=== PATIENT | female | born 1985 | race Two or more races ===

== ENCOUNTER 2018-03-27 09:11 | Emergency (ER) | payer SELFPAY ==
[~2018-03-27] VITALS: Ht 154.9 cm; Wt 63.5 kg
[2018-03-27 09:30] VITALS: BP 130/89
[2018-03-27] MEDS ORDERED: ORPHENADRINE CITRATE 60 MG/2 ML VIAL. IM ONE (10:45)
[2018-03-27] MEDS ORDERED: KETOROLAC 30 MG/ML VIAL. IM ONE (10:45)
[2018-03-27] MEDS ORDERED: ORPH100T PO (11:10)
[2018-03-27] MEDS ORDERED: NAPR500T8 PO (11:10)
--- NOTE | 2018-03-27 11:10 | PHYS DOC ---
Past Medical History Past Medical History: No Pertinent History Past Surgical History: No Surgical History Alcohol Use: None Drug Use: None Adult General Chief Complaint Chief Complaint: COUGH HPI HPI Patient is a 32 year old female who presents with left neck and shoulder pain for the last 2 days that began when she awoke. She denies any known injury. Reports the pain shoots up to her left ear and down to her left shoulder. The pain increases with coughing and movement. Review of Systems Review of Systems Constitutional: Denies fever or chills [] Eyes: Denies change in visual acuity, redness, or eye pain [] HENT: Denies nasal congestion or sore throat [] Respiratory: Denies shortness of breath; reports dry cough Cardiovascular: No additional information not addressed in HPI [] Musculoskeletal: Denies back pain, reports L neck pain Integument: Denies rash or skin lesions [] Neurologic: Denies headache, focal weakness or sensory changes [] All other systems were reviewed and found to be within normal limits, except as documented in this note. Current Medications Current Medications Current Medications Medications (Trade) Dose Ordered Sig/Karma Start Time Stop Time Status Last Admin Dose Admin Insulin Human Regular (HumuLIN R VIAL) 5 unit 1X ONCE 03/27/18 11:45 03/27/18 11:46 Cancel Ketorolac Tromethamine (Toradol 30mg Vial) 30 mg 1X ONCE 03/27/18 10:45 03/27/18 10:46 DC 03/27/18 10:31 30 MG Magnesium Sulfate/ Dextrose 100 ml @ 100 mls/hr 1X ONCE 03/27/18 11:45 03/27/18 12:44 Cancel Orphenadrine Citrate (Norflex) 60 mg 1X ONCE 03/27/18 10:45 03/27/18 10:46 DC 03/27/18 10:32 60 MG Potassium Chloride (Klor-Con) 60 meq 1X ONCE 03/27/18 11:45 03/27/18 11:46 Cancel Allergies Allergies Allergies Coded Allergies Type Severity Reaction Last Updated Verified No Known Drug Allergies 03/27/18 No Physical Exam Physical Exam Constitutional: Well developed, well nourished, no acute distress, non-toxic appearance. [] HENT: Normocephalic, atraumatic, bilateral external ears normal, oropharynx moist, no oral exudates, nose normal. [] Eyes: PERRLA, conjunctiva normal, no discharge. [] Neck: supple, no stridor, no bony tenderness; L sternocleidomastoid tenderness to palpation, limited lateral ROM due to increased pain, chin to chest normal Cardiovascular:Heart rate regular rhythm, no murmur [] Lungs & Thorax: Bilateral breath sounds clear to auscultation [] Skin: Warm, dry, no erythema, no rash. [] Extremities: No cyanosis, no clubbing, ROM intact, no edema. [] Neurologic: Alert and oriented X 3, normal motor function, normal sensory function, no focal deficits noted. [] Psychologic: Affect normal, judgement normal, mood normal. [] Current Patient Data Vital Signs Vital Signs Date Time Temp Pulse Resp B/P (MAP) Pulse Ox O2 Delivery O2 Flow Rate FiO2 03/27/18 09:30 98.0 89 20 130/89 (103) 99 Room Air 98.0 Lab Values Laboratory Tests Test 03/27/18 10:47 POC Urine HCG, Qualitative Hcg negative (Negative) EKG EKG [] Radiology/Procedures Radiology/Procedures [] Course & Med Decision Making Course & Med Decision Making Pertinent Labs and Imaging studies reviewed. (See chart for details) Dx: acute torticollis Pt was given 60 mg IM norflex, and 30 mg IM toradol, reports relief of pain after medications. Prescriptions written for naproxen and orphenadrine, activity as tolerated. Patient verbalized an understanding of home care, medications, follow-up, and return to ED instructions and was in agreement with the plan of care. [] Staff Physician Addendum: I was working in the ER during the course of this patient's visit. I was available for consultation as needed, but I was not directly involved in the care of this patient. Dragon Disclaimer Dragon Disclaimer This electronic medical record was generated, in whole or in part, using a voice recognition dictation system. Departure Departure Impression: Primary Impression: Torticollis, acute Disposition: HOME, SELF-CARE Condition: IMPROVED Referrals: NO PCP (PCP) Patient Instructions: Torticollis, Acute Additional Instructions: Fill the prescriptions and use them as directed. SHe may apply ice or heat to sore areas for comfort. Follow-up with your primary care doctor in 2-3 days if your symptoms persist. Return to the emergency room if her symptoms worsen. Scripts Orphenadrine Citrate (ORPHENADRINE CITRATE) 100 Mg Tablet.er 1 TAB PO BID for 10 Days, #20 TAB 0 Refills Prov: RIDDHI MCHUGH APRN 03/27/18 Naproxen (NAPROXEN) 500 Mg Tablet.dr 1 TAB PO BID for 10 Days, #20 TAB 0 Refills Prov: RIDDHI MCHUGH APRN 03/27/18 RIDDHI MCHUGH APRN Mar 27, 2018 11:10 BERT MONTEZ MD Mar 31, 2018 07:20
[2018-03-27] MEDS ORDERED: INSULIN REGULAR 100 UNIT/ML 3ML VIAL. IV ONE (11:45)
[2018-03-27] MEDS ORDERED: POTASSIUM CHLORIDE 20 MEQ TABLET.ER. PO ONE (11:45)
[2018-03-27] MEDS ORDERED: MAGNESIUM SULFATE 1GM 100 ML IV ONE (11:45)
== END 2018-03-27 11:28 | disposition home or self-care (01) ==
LOC: ER 09:11
DX: M43.6 Torticollis (principal); M25.512 Pain in left shoulder; R05 Cough; H92.02 Otalgia, left ear
CPT/HCPCS: 81025; 96372; 99284; J1885; J2360